=== PATIENT | male | born 1940 | race Caucasian/White ===

== ENCOUNTER 2023-09-23 13:11 | Inpatient (IN) | payer OTHER ==
[~2023-09-23] VITALS: Ht 168.9 cm; Wt 72.6 kg
[2023-09-23] MEDS ORDERED: METOPROLOL TARTRATE INJ 5 MG/5 ML AMPUL ONE (14:54)
[2023-09-23] MEDS: METOPROLOL TARTRATE INJ 5 MG/5 ML AMPUL IVP PRN (15:00)
[2023-09-23 15:24] LABS: BASOPHILS % (AUTO) 0.2 % (0.0-2.0); EOSINOPHILS % (AUTO) 0.1 % (0.0-6.0); HEMATOCRIT 45 % (39-51); HEMOGLOBIN 14.6 g/dL (13.5-17.5); LYMPHOCYTES # (AUTO) 0.8 K/uL (0.8-4.8); LYMPHOCYTES % (AUTO) 7.8 % (20.0-44.0); MEAN CORPUSCULAR HEMOGLOBIN 30 PG (26.0-33.0); MEAN CORPUSCULAR HGB CONC 33 g/dl (31.0-36.0); MEAN CORPUSCULAR VOLUME 91 fL (80-96); MONOCYTES # (AUTO) 0.8 K/uL (0.1-1.30); MONOCYTES % (AUTO) 8.3 % (2.0-12.0); NEUTROPHILS # (AUTO) 8.1 K/uL (1.8-8.9); NEUTROPHILS % (AUTO) 83.6 % (43.0-81.0); PLATELET COUNT (AUTO) 221 K/uL (150-450); RED BLOOD CELL COUNT(AUTO) 4.89 MIL/uL (4.5-6.0); RED CELL DISTRIBUTION WIDTH 14.2 % (11.5-15.0); WHITE BLOOD COUNT (AUTO) 9.7 K/uL (4.3-11.0)
[2023-09-23 15:33] LABS: CARBON DIOXIDE 25 mmol/L (21-32); CHLORIDE 102 mmol/L (98-107); GLUCOSE 168 mg/dL (74-106); POTASSIUM 4.2 mmol/L (3.5-5.1); SODIUM SERUM 136 mmol/L (136-145); UREA NITROGEN, BLOOD 13 mg/dL (7-18)
[2023-09-23 15:41] LABS: ALANINE AMINOTRANSFERASE 23 U/L (12-78); ALBUMIN 3.8 g/dL (3.4-5.0); ALKALINE PHOSPHATASE 83 U/L (46-116); ASPARTATE AMINOTRANSFERASE 18 U/L (15-37); BILIRUBIN,DIRECT 0.2 mg/dL (0.0-0.2); BILIRUBIN,TOTAL 0.6 mg/dL (0.2-1.0); TOTAL PROTEIN, SERUM 7.6 g/dL (6.4-8.2)
[2023-09-23 15:45] LABS: INR 1.14 (0.91-1.10); PARTIAL THROMBOPLASTIN TIME 25.2 SEC (24.3-34.3); PROTHROMBIN TIME 11.6 SECS (9.2-11.1)
[2023-09-23] MEDS ORDERED: PANT40TA49 PO (16:01)
[2023-09-23] MEDS ORDERED: ALOG25TA2 PO (16:01)
[2023-09-23] MEDS ORDERED: AMLO-213 PO (16:01)
[2023-09-23] MEDS ORDERED: APIX5TAB PO (16:01)
[2023-09-23] MEDS ORDERED: ROSU10TA2 PO (16:01)
[2023-09-23] MEDS ORDERED: EMPA25TA PO (16:01)
[2023-09-23] MEDS ORDERED: PIOG15TA8 PO (16:01)
[2023-09-23] MEDS: METOPROLOL TARTRATE 25 MG TABLET PO ONE (17:00)
[2023-09-23] MEDS ORDERED: METOPROLOL TARTRATE 25 MG TABLET ONE (17:21)
[2023-09-23] MEDS ORDERED: MORPHINE SULFATE INJ 2 MG/ML DISP.SYRIN IV ONE (18:00)
[2023-09-23] MEDS ORDERED: METRONIDAZOLE 500MG/ NS 100ML 100 ML IV ONE (18:14)
[2023-09-23] MEDS ORDERED: CIPROFLOXACIN IV RTU 200 ML IV ONE (18:14)
[2023-09-23] MEDS ORDERED: MORPHINE SULFATE INJ 4 MG/ML DISP.SYRIN ONE (18:20)
[2023-09-23] MEDS ORDERED: ACETAMINOPHEN ES 500 MG TABLET ONE (18:27)
[2023-09-23] MEDS: ACETAMINOPHEN ES 500 MG TABLET PO ONE (18:30)
[2023-09-23] MEDS: FLAGYL/NS RTU 500 MG/100 ML PIGGYBACK IV ONE (18:30)
[2023-09-23] MEDS: CIPROFLOXACIN IV RTU 400 MG in PREMIX 1 EA IV ONE (19:30)
[2023-09-23 21:00] VITALS: BP_SYST 128; BP_SYST 140; BP_DIAS 73; BP_DIAS 76; TEMP 97.9; O2SAT 95
[2023-09-23] MEDS ORDERED: MAG HYDROX/AL HYDROX/SIMETH 30 ML UDC PO PRN (21:30)
[2023-09-23] MEDS ORDERED: MORPHINE SULFATE INJ 2 MG/ML DISP.SYRIN IV PRN (21:30)
[2023-09-23] MEDS ORDERED: DEXTROSE 50%-WATER 50 ML DISP.SYRIN IV PRN (21:30)
[2023-09-23] MEDS ORDERED: ZOLPIDEM TARTRATE 5 MG TABLET PO PRN (21:30)
[2023-09-23] MEDS ORDERED: Z GUARD REMEDY 4 OZ OINT TP PRN (21:30)
[2023-09-23] MEDS ORDERED: ONDANSETRON HCL/PF 4 MG/2 ML VIAL IVP PRN (21:30)
[2023-09-23] MEDS ORDERED: MAGNESIUM HYDROXIDE 30 ML UDC PO PRN (21:30)
[2023-09-23] MEDS: BLOOD SUGAR DIAGNOSTIC 1 EACH STRIP IN SCH (22:38)
[2023-09-23] MEDS: IV NS 0.9% 1,000 ML IV PRN (22:39)
[2023-09-23] MEDS: INSULIN REGULAR, HUMAN 100 UNIT/ML 3 ML VIAL SQ PRN (22:47)
[2023-09-24] VITALS: BP 128/73; TEMP 98.1; O2SAT 95
[2023-09-24] MEDS ORDERED: METRONIDAZOLE 500MG/ NS 100ML 200 ML IV ONE (00:43)
[2023-09-24] MEDS: METRONIDAZOLE 500MG/ NS 100ML 500 MG in PREMIX 1 EA IV SCH ×2 (01:18→12:04)
[2023-09-24] MEDS: ACETAMINOPHEN 325 MG TABLET PO PRN (03:54)
[2023-09-24 04:00] VITALS: BP 134/70; TEMP 98; O2SAT 96
[2023-09-24 07:00] VITALS: BP 132/63; TEMP 98.4; O2SAT 95
[2023-09-24] MEDS ORDERED: CIPROFLOXACIN IV RTU 400 MG in PREMIX 1 EA IV SCH (07:00)
[2023-09-24 07:18] LABS: BASOPHILS % (AUTO) 0.3 % (0.0-2.0); EOSINOPHILS % (AUTO) 0.4 % (0.0-6.0); HEMATOCRIT 40 % (39-51); HEMOGLOBIN 13.2 g/dL (13.5-17.5); LYMPHOCYTES # (AUTO) 1.3 K/uL (0.8-4.8); LYMPHOCYTES % (AUTO) 18.7 % (20.0-44.0); MEAN CORPUSCULAR HEMOGLOBIN 31 PG (26.0-33.0); MEAN CORPUSCULAR HGB CONC 33 g/dl (31.0-36.0); MEAN CORPUSCULAR VOLUME 92 fL (80-96); MONOCYTES # (AUTO) 0.9 K/uL (0.1-1.30); MONOCYTES % (AUTO) 12.5 % (2.0-12.0); NEUTROPHILS # (AUTO) 4.8 K/uL (1.8-8.9); NEUTROPHILS % (AUTO) 68.1 % (43.0-81.0); PLATELET COUNT (AUTO) 198 K/uL (150-450); RED BLOOD CELL COUNT(AUTO) 4.33 MIL/uL (4.5-6.0); RED CELL DISTRIBUTION WIDTH 14.1 % (11.5-15.0); WHITE BLOOD COUNT (AUTO) 7.1 K/uL (4.3-11.0)
[2023-09-24 08:08] LABS: ALBUMIN 2.7 g/dL (3.4-5.0); BILIRUBIN,TOTAL 0.7 mg/dL (0.2-1.0); CALCIUM, SERUM 8.4 mg/dL (8.5-10.1); CREATININE 0.9 mg/dL (0.6-1.3); MAGNESIUM 2.2 mg/dL (1.8-2.4); PHOSPHORUS 2.9 mg/dL (2.5-4.9); POTASSIUM 4.1 mmol/L (3.5-5.1); TOTAL PROTEIN, SERUM 6.3 g/dL (6.4-8.2)
[2023-09-24] MEDS: PIOGLITAZONE HCL 15 MG TABLET PO SCH (08:40)
[2023-09-24] MEDS: PANTOPRAZOLE 40 MG TABLET.DR PO SCH (08:40)
[2023-09-24] MEDS: EMPAGLIFLOZIN 25 MG TABLET PO SCH (08:40)
[2023-09-24] MEDS: ATORVASTATIN 10 MG TABLET PO SCH (08:41)
[2023-09-24] MEDS: AMLODIPINE BESYLATE 10 MG TABLET PO SCH (08:41)
[2023-09-24] MEDS: APIXABAN 5 MG TABLET PO SCH (08:43)
[2023-09-24] MEDS: CIPROFLOXACIN IV RTU 400 MG in PREMIX 1 EA IV SCH (09:05)
[2023-09-24 11:22] VITALS: BP 123/69; TEMP 97.9; O2SAT 93
[2023-09-24] MEDS: LINAGLIPTIN 5 MG TABLET PO SCH (13:11)
[2023-09-24 16:00] VITALS: BP 145/70; TEMP 98.5; O2SAT 94
[2023-09-24] MEDS: METOPROLOL TARTRATE 25 MG TABLET PO SCH (17:46)
[2023-09-24 20:00] VITALS: BP 124/69; TEMP 97.7; O2SAT 95
[2023-09-25] VITALS: BP 116/69; TEMP 97.8; O2SAT 95
[2023-09-25 04:00] VITALS: BP 132/68; TEMP 98.1; O2SAT 95
[2023-09-25 07:30] LABS: BASOPHILS % (AUTO) 0.3 % (0.0-2.0); EOSINOPHILS % (AUTO) 0.7 % (0.0-6.0); HEMATOCRIT 39 % (39-51); LYMPHOCYTES # (AUTO) 1.3 K/uL (0.8-4.8); LYMPHOCYTES % (AUTO) 22.5 % (20.0-44.0); MEAN CORPUSCULAR HEMOGLOBIN 31 PG (26.0-33.0); MEAN CORPUSCULAR HGB CONC 33 g/dl (31.0-36.0); MEAN CORPUSCULAR VOLUME 92 fL (80-96); MONOCYTES # (AUTO) 0.8 K/uL (0.1-1.30); MONOCYTES % (AUTO) 13.7 % (2.0-12.0); NEUTROPHILS # (AUTO) 3.5 K/uL (1.8-8.9); NEUTROPHILS % (AUTO) 62.8 % (43.0-81.0); PLATELET COUNT (AUTO) 194 K/uL (150-450); RED BLOOD CELL COUNT(AUTO) 4.23 MIL/uL (4.5-6.0); RED CELL DISTRIBUTION WIDTH 14.3 % (11.5-15.0); WHITE BLOOD COUNT (AUTO) 5.6 K/uL (4.3-11.0)
[2023-09-25 07:50] LABS: CALCIUM, SERUM 8.5 mg/dL (8.5-10.1); CARBON DIOXIDE 22 mmol/L (21-32); CHLORIDE 107 mmol/L (98-107); CREATININE 0.9 mg/dL (0.6-1.3); GLUCOSE 119 mg/dL (74-106); MAGNESIUM 2.1 mg/dL (1.8-2.4); PHOSPHORUS 2.9 mg/dL (2.5-4.9); POTASSIUM 3.7 mmol/L (3.5-5.1); SODIUM SERUM 139 mmol/L (136-145); UREA NITROGEN, BLOOD 11 mg/dL (7-18)
[2023-09-25 08:00] VITALS: BP 123/66; TEMP 98.6; O2SAT 96
[2023-09-25 12:00] VITALS: BP 109/49; TEMP 97.9; O2SAT 96
[2023-09-25] MEDS ORDERED: METO25TA20 PO (14:03)
[2023-09-25] MEDS ORDERED: POLY17PO4 PO (14:03)
[2023-09-25 16:13] VITALS: BP 120/68; TEMP 97.9; O2SAT 98
== END 2023-09-25 16:24 | disposition home or self-care (01) | DRG 312 ==
LOC: ER 13:11 → TELE 20:02
PROVIDERS: ADMIT Nurse Practitioner Acute Care; ATTEND Student in an Organized Health Care Education/Training Program
DX: I95.1 Orthostatic hypotension (principal); I48.0 Paroxysmal atrial fibrillation; E11.9 Type 2 diabetes mellitus without complications; I10 Essential (primary) hypertension; M50.321 Other cervical disc degeneration at C4-C5 level; Z79.01 Long term (current) use of anticoagulants; Z79.84 Long term (current) use of oral hypoglycemic drugs; Z79.899 Other long term (current) drug therapy; K59.00 Constipation, unspecified
CPT/HCPCS: 36415; 70450-TC; 71250-TC; 72125-TC; 80048-TC; 80053-TC; 80076-TC; 82962-TC; 83735-TC; 84100-TC; 84443-TC; 84484-TC; 85025-TC; 85730-TC; 93307-TC; 97112-TC; 97116-TC; 97530-TC; A4216; A4223; G0378; J0744; J1815; J2270; J3490; J7030